=== PATIENT | female | born 1955 | race Caucasian/White ===

== ENCOUNTER 2024-11-18 17:05 | Emergency (ER) | payer OTHER, BC ==
[~2024-11-18] VITALS: Ht 172.7 cm; Wt 66.7 kg
[2024-11-18] MEDS ORDERED: LEVOTHYROXINE150 MCG PO (17:21)
[2024-11-18] MEDS ORDERED: IBUPROFEN 400 MG TAB PO ONE (17:45)
[2024-11-18] MEDS ORDERED: ACETAMINOPHEN 500 MG TAB PO ONE (17:45)
[2024-11-18] MEDS ORDERED: HYDROCODON-ACE1 EA10 PO (18:33)
[2024-11-18 18:54] VITALS: BP 136/80
== END 2024-11-18 18:54 | disposition home or self-care (01) ==
LOC: ED 17:05
DX: S20.212A Contusion of left front wall of thorax, initial encounter (principal); Z88.5 Allergy status to narcotic agent; Z79.890 Hormone replacement therapy; W01.0XXA Fall on same level from slipping, tripping and stumbling without subsequent striking against object, initial encounter
CPT/HCPCS: 71046; 99283-25; A9270